=== PATIENT | female | born 1985 | race Two or more races ===

== ENCOUNTER 2019-03-16 21:49 | Emergency (ER) | payer MEDICAID ==
[~2019-03-16] VITALS: Ht 157.5 cm; Wt 117.5 kg
[2019-03-16 22:20] VITALS: BP 142/90
[2019-03-17] MEDS ORDERED: methylPREDNISolone SOD SUCC 125 MG/2 ML VL IM ONE (01:45)
[2019-03-17] MEDS ORDERED: KETOROLAC TROMETH 60MG/2ML VIAL IM ONE (01:45)
== END 2019-03-17 02:29 | disposition home or self-care (01) ==
LOC: ER 21:54
DX: S33.5XXA Sprain of ligaments of lumbar spine, initial encounter (principal); M54.42 Lumbago with sciatica, left side; X58.XXXA Exposure to other specified factors, initial encounter; Y93.89 Activity, other specified; Y92.89 Other specified places as the place of occurrence of the external cause; Y99.8 Other external cause status
CPT/HCPCS: 96372; 99283; J1885; J2930